=== PATIENT | male | born 1970 | race Caucasian/White ===

== ENCOUNTER 2021-12-24 13:06 | Outpatient (RCR) | payer BC | END 2021-12-31 | disposition home or self-care (01) | LOC: PT | DX: M25.551 Pain in right hip (principal); M25.552 Pain in left hip ==

== ENCOUNTER 2022-01-02 11:04 | Outpatient (RCR) | payer BC | END 2022-01-28 15:09 | disposition home or self-care (01) | LOC: PT 11:04 | DX: M25.551 Pain in right hip (principal); M25.552 Pain in left hip ==

== ENCOUNTER → 2022-04-07 | Outpatient (CLI) | payer BC | LOC: LAB 07:41 | DX: Z20.822 Contact with and (suspected) exposure to COVID-19 (principal) ==

== ENCOUNTER → 2022-05-05 | Outpatient (CLI) | payer BC | LOC: LAB 09:06 | DX: Z20.822 Contact with and (suspected) exposure to COVID-19 (principal) ==